=== PATIENT | female | born 1990 | race Caucasian/White ===

== ENCOUNTER 2025-05-22 13:33 | Emergency (ER) | payer MEDICAID ==
[~2025-05-22] VITALS: Ht 157.5 cm; Wt 64.0 kg
[2025-05-22 14:07] VITALS: O2SAT 98
[2025-05-22] MEDS: POLYETHYLENE GLYCOL 3350 (17GM) 1 DOSE PACK PO ONE (16:45)
[2025-05-22 17:07] LABS: HEMATOCRIT. 28.1 % (36.0-48.0); HEMOGLOBIN. 9.4 g/dL (12.0-16.0); MEAN PLATELET VOLUME 7.4 fl (7.4-10.4); PLATELET 407 x1000/uL (130-400); RED BLOOD CELL COUNT 2.90 mill/uL (4.2-5.4); RED CELL DISTRIBUTION WIDTH 27.4 % (11.6-14.6)
[2025-05-22 17:20] LABS: CREATININE 0.5 mg/dL (0.6-1.0); UREA NITROGEN BLOOD 18 mg/dL (9-23)
[2025-05-22 17:38] LABS: BAND% 3.0 % (1.0-6.0); EOSINOPHILS % MANUAL 2.0 % (0.0-5.0); LYMPHOCYTES % MANUAL 42.0 % (20.0-60.0); METAMYELOCYTES % 2.0 % (0-0); MONOCYTES % MANUAL 9.0 % (2.0-8.0); MYELOCYTES % 2.0 % (0-0); NEUTROPHILS % MANUAL 40.0 % (45.0-75.0); PLATELET ESTIMATE NORMAL
[2025-05-22] MEDS ORDERED: CLIN50GE6 TP (19:07)
[2025-05-22] MEDS ORDERED: POLY17PO3 MT (19:07)
[2025-05-22 19:14] VITALS: BP 105/67; PULSE 83; RESP 15; TEMP 36.8; O2SAT 100
== END 2025-05-22 19:14 | disposition home or self-care (01) ==
LOC: ER 13:33
DX: K59.00 Constipation, unspecified (principal); D64.9 Anemia, unspecified; R60.0 Localized edema; R21 Rash and other nonspecific skin eruption; Z79.899 Other long term (current) drug therapy
CPT/HCPCS: 36415; 71045; 80048; 83880; 85025; 93970; 99284